=== PATIENT | male | born 1965 | race Caucasian/White ===

== ENCOUNTER 2021-03-01 10:43 | Inpatient (IN) ==
[2021-03-01 14:02] LABS: Albumin 2.6 G/DL (3.4-5.0); Bilirubin,Total 0.66 MG/DL (0.20-1.00); Calcium 7.8 MG/DL (8.5-10.1); Total Protein 5.6 G/DL (6.4-8.2)
[2021-03-01 14:03] LABS: Osmolality,Calculated 285.3 MOS/KG (273-304); Potassium 4.4 MMOL/L (3.5-5.1)
[2021-03-01] MEDS ORDERED: ONDANSETRON 4 MG/2 ML VIAL IV PRN (14:23)
[2021-03-01] MEDS ORDERED: GLUCAGON 1 MG VIAL IM PRN (14:23)
[2021-03-01] MEDS ORDERED: SODIUM CHLORIDE 0.9% 1,000 ML IV PRN (14:27)
[2021-03-01] MEDS ORDERED: DEXTROSE 50% 25 GM/50 ML SYRINGE IV PRN (14:38)
[2021-03-01 14:54] LABS: INR 1.2; PT Patient Result 13.6 SECS (10.5-12.0); Partial Thromboplastin Time 29.4 SECS (23.8-32.1)
[2021-03-01 15:01] LABS: Basophils % 0.6 % (0.0-0.8); Eosinophils # 0.2 10*3/uL (0.0-0.87); Eosinophils % 2.5 % (0.00-10.9); Hematocrit 24.6 VOL% (42.0-52.0); Hemoglobin 7.6 GM/DL (14.0-18.0); Immature Granulocytes % 0.6 %; Immature Granulocytes Absolute 0.04 #; Lymphocytes # 0.5 10*3/uL (1.4-4.0); Lymphocytes % 7.8 % (21.2-54.2); Mean Corpuscular HGB Conc 30.9 GM/DL (32-36); Mean Platelet Volume 11.6 FL (9.6-12.0); Monocytes % 8.8 % (1.7-12.7); Neutrophils % 79.7 % (38.7-73.9); Platelet Count 89 T/CUMM (130-400); Red Blood Count 2.59 MC/CUMM (3.8-5.5); Red Cell Distribution Width 15.2 % (9.3-17.3); White Blood Count 6.8 T/CUMM (4-12)
[2021-03-01] MEDS ORDERED: ALBUTEROL/IPRATROPIUM 3 ML NEB RESP TX PRN (15:28)
[2021-03-01] MEDS: PANTOPRAZOLE INJ 200 MG in SODIUM CHLORIDE 0.9% 250 ML IV SCH (16:00)
[2021-03-01] MEDS: metroNIDAZOLE INJ 500 MG/100 ML PREMIX IV SCH (16:00)
[2021-03-01] MEDS: LEVOFLOXACIN INJ 500 MG/100 ML PREMIX IV SCH (18:35)
[2021-03-01 19:12] LABS: Hypochromasia Slight
[2021-03-01 19:13] LABS: Platelet Estimate Adequate
[2021-03-02] MEDS: LACTULOSE 20 GM/30 ML UDCUP PO SCH ×3 (01:22→23:09)
[2021-03-02] MEDS: RIFAXIMIN 550 MG TABLET PO SCH ×3 (01:22→22:38)
[2021-03-02] MEDS: metroNIDAZOLE INJ 500 MG/100 ML PREMIX IV SCH ×4 (04:32→22:34)
[2021-03-02] MEDS ORDERED: FUROSEMIDE 20 MG TABLET PO SCH (09:00)
[2021-03-02] MEDS ORDERED: ALBUMIN 25% 50 GM/200 ML VIAL IV ONE (09:09)
[2021-03-02 09:48] LABS: Basophils % 0.6 % (0.0-0.8); Eosinophils # 0.2 10*3/uL (0.0-0.87); Eosinophils % 3.8 % (0.00-10.9); Hematocrit 24.3 VOL% (42.0-52.0); Hemoglobin 7.6 GM/DL (14.0-18.0); Immature Granulocytes % 0.6 %; Immature Granulocytes Absolute 0.03 #; Lymphocytes # 0.7 10*3/uL (1.4-4.0); Lymphocytes % 14.7 % (21.2-54.2); Mean Corpuscular HGB Conc 31.3 GM/DL (32-36); Mean Corpuscular Volume 93.5 FL (87-102); Mean Platelet Volume 10.1 FL (9.6-12.0); Monocytes % 11.5 % (1.7-12.7); Neutrophils % 68.8 % (38.7-73.9); Platelet Count 71 T/CUMM (130-400); Red Cell Distribution Width 15.7 % (9.3-17.3)
[2021-03-02] MEDS: SPIRONOLACTONE 50 MG TABLET PO SCH (10:05)
[2021-03-02 10:10] LABS: Albumin 2.2 G/DL (3.4-5.0); Bilirubin,Total 0.9 MG/DL (0.20-1.00); Calcium 7.6 MG/DL (8.5-10.1); Osmolality,Calculated 289.8 MOS/KG (273-304); Potassium 4.4 MMOL/L (3.5-5.1); Risk Ratio 2.27; Total Protein 5.2 G/DL (6.4-8.2); VLDL Cholesterol 10.2 MG/DL
[2021-03-02 10:15] LABS: Hypochromasia 2+; Microcytosis 1+; Platelet Estimate Decreased
[2021-03-02] MEDS: LEVOFLOXACIN INJ 500 MG/100 ML PREMIX IV SCH (16:39)
[2021-03-02] MEDS: FUROSEMIDE 40 MG TABLET PO SCH (16:39)
[2021-03-02] MEDS: PANTOPRAZOLE INJ 200 MG in SODIUM CHLORIDE 0.9% 250 ML IV SCH (16:39)
[2021-03-02] MEDS: MORPHINE 2 MG/1 ML SYRINGE IV PRN ×2 (17:14→22:37)
[2021-03-02 17:16] LABS: Hematocrit 23.9 VOL% (42.0-52.0); Hemoglobin 7.5 GM/DL (14.0-18.0)
[2021-03-02 23:42] LABS: Hematocrit 24.8 VOL% (42.0-52.0); Hemoglobin 7.8 GM/DL (14.0-18.0)
[2021-03-03 06:23] LABS: Hematocrit 24.1 VOL% (42.0-52.0); Hemoglobin 7.5 GM/DL (14.0-18.0)
[2021-03-03 06:25] LABS: Basophils % 0.3 % (0.0-0.8); Eosinophils # 0.3 10*3/uL (0.0-0.87); Eosinophils % 8.3 % (0.00-10.9); Hematocrit 23.4 VOL% (42.0-52.0); Hemoglobin 7.6 GM/DL (14.0-18.0); Immature Granulocytes % 0.3 %; Immature Granulocytes Absolute 0.01 #; Lymphocytes # 0.6 10*3/uL (1.4-4.0); Lymphocytes % 18.5 % (21.2-54.2); Mean Corpuscular HGB Conc 32.5 GM/DL (32-36); Mean Corpuscular Volume 91.8 FL (87-102); Monocytes % 15.8 % (1.7-12.7); Neutrophils % 56.8 % (38.7-73.9); Platelet Count 54 T/CUMM (130-400); Red Blood Count 2.55 MC/CUMM (3.8-5.5); Red Cell Distribution Width 15.3 % (9.3-17.3)
[2021-03-03 06:39] LABS: Calcium 7.4 MG/DL (8.5-10.1); Osmolality,Calculated 274.7 MOS/KG (273-304); Potassium 3.5 MMOL/L (3.5-5.1)
[2021-03-03 06:40] LABS: Eosinophils 7 % (0-10); Lymphocytes 21 % (20-55); Segmented Neutrophils 56 % (50-85); Total Cells Counted 100
[2021-03-03 06:41] LABS: Hypochromasia 1+; Microcytosis 1+; Ovalocytes Slight; Platelet Estimate Decreased
[2021-03-03] MEDS: metroNIDAZOLE INJ 500 MG/100 ML PREMIX IV SCH ×3 (06:41→22:00)
[2021-03-03 06:45] LABS: Calcium 7.4 MG/DL (8.5-10.1); Osmolality,Calculated 278.4 MOS/KG (273-304); Potassium 3.5 MMOL/L (3.5-5.1)
[2021-03-03] MEDS: LACTATED RINGERS 1,000 ML IV SCH (08:00)
[2021-03-03] MEDS ORDERED: GLYCOPYRROLATE 0.4 MG/2 ML VIAL ONE (08:27)
[2021-03-03] MEDS ORDERED: propofoL 200 MG/20 ML VIAL IV ONE (08:27)
[2021-03-03] MEDS ORDERED: LIDOCAINE 2% 5 ML VIAL ONE (08:27)
[2021-03-03] MEDS ORDERED: KETAMINE 500 MG/10 ML VIAL ONE (08:40)
[2021-03-03] MEDS ORDERED: SODIUM CHLORIDE 0.9% 1,000 ML IV PRN (09:00)
[2021-03-03] MEDS ORDERED: MEPERIDINE 50 MG/1 ML VIAL IV ONE (09:04)
[2021-03-03] MEDS ORDERED: PROMETHAZINE INJ 25 MG in SODIUM CHLORIDE 0.9% 50 ML IV ONE (09:05)
[2021-03-03] MEDS ORDERED: MEPERIDINE 50 MG/1 ML VIAL ONE (09:09)
[2021-03-03] MEDS ORDERED: PROMETHAZINE 25 MG/1 ML VIAL ONE (09:10)
[2021-03-03] MEDS ORDERED: SODIUM CHLORIDE 0.9% 100 ML IV ONE (09:15)
[2021-03-03] MEDS: LACTULOSE 20 GM/30 ML UDCUP PO SCH ×2 (10:22→23:11)
[2021-03-03] MEDS: SPIRONOLACTONE 50 MG TABLET PO SCH (10:23)
[2021-03-03] MEDS: FUROSEMIDE 40 MG TABLET PO SCH ×2 (10:23→15:43)
[2021-03-03] MEDS: RIFAXIMIN 550 MG TABLET PO SCH ×2 (10:23→21:27)
[2021-03-03] MEDS ORDERED: PROMETHAZINE INJ 25 MG in SODIUM CHLORIDE 0.9% 50 ML IV PRN (12:28)
[2021-03-03] MEDS: PROPRANOLOL 10 MG TABLET PO SCH ×2 (15:42→21:27)
[2021-03-03] MEDS: LEVOFLOXACIN INJ 500 MG/100 ML PREMIX IV SCH (15:42)
[2021-03-03] MEDS: MEPERIDINE 50 MG/1 ML VIAL IV PRN ×2 (15:53→20:18)
[2021-03-03 18:39] LABS: Hematocrit 31.3 VOL% (42.0-52.0)
[2021-03-04] MEDS: MEPERIDINE 50 MG/1 ML VIAL IV PRN ×2 (05:01→11:53)
[2021-03-04 05:14] LABS: Basophils % 0.4 % (0.0-0.8); Eosinophils # 0.4 10*3/uL (0.0-0.87); Eosinophils % 7.9 % (0.00-10.9); Hematocrit 32.5 VOL% (42.0-52.0); Hemoglobin 10.4 GM/DL (14.0-18.0); Immature Granulocytes % 0.4 %; Immature Granulocytes Absolute 0.02 #; Lymphocytes # 0.6 10*3/uL (1.4-4.0); Lymphocytes % 12.4 % (21.2-54.2); Mean Corpuscular Volume 90.3 FL (87-102); Mean Platelet Volume 11.2 FL (9.6-12.0); Monocytes % 14.1 % (1.7-12.7); Neutrophils % 64.8 % (38.7-73.9); Platelet Count 82 T/CUMM (130-400); Red Cell Distribution Width 16.1 % (9.3-17.3); White Blood Count 4.7 T/CUMM (4-12)
[2021-03-04 05:30] LABS: Hypochromasia 1+
[2021-03-04 05:31] LABS: Anisocytosis 1+; Microcytosis 1+; Ovalocytes Few; Platelet Estimate Decreased; Polychromasia Slight
[2021-03-04 05:33] LABS: Calcium 8.2 MG/DL (8.5-10.1); Osmolality,Calculated 274.7 MOS/KG (273-304); Potassium 3.9 MMOL/L (3.5-5.1)
[2021-03-04] MEDS: metroNIDAZOLE INJ 500 MG/100 ML PREMIX IV SCH ×2 (06:00→15:56)
[2021-03-04] MEDS: LACTATED RINGERS 1,000 ML IV SCH (07:56)
[2021-03-04] MEDS ORDERED: PANTOPRAZOLE 40 MG VIAL IV SCH (09:00)
[2021-03-04] MEDS ORDERED: LACTULOSE 20 GM/30 ML UDCUP PO SCH (09:00)
[2021-03-04] MEDS: SPIRONOLACTONE 50 MG TABLET PO SCH (09:04)
[2021-03-04] MEDS: PROPRANOLOL 10 MG TABLET PO SCH ×2 (09:04→15:45)
[2021-03-04] MEDS: FUROSEMIDE 40 MG TABLET PO SCH ×2 (09:04→15:45)
[2021-03-04] MEDS: RIFAXIMIN 550 MG TABLET PO SCH (09:04)
[2021-03-04] MEDS: LEVOFLOXACIN INJ 500 MG/100 ML PREMIX IV SCH (15:57)
[2021-03-04 16:03] VITALS: BP 111/71
== END 2021-03-04 17:10 | DRG 432 ==
LOC: N.ED 10:43 → N.EDINP 14:22 → N.3W 22:05
PROVIDERS: ADMIT Internal Medicine; ATTEND Internal Medicine
PROC: EGDWEBL (ICD-10-PCS; 2021-03-03 08:20)

== ENCOUNTER 2021-03-12 16:57 | Inpatient (IN) ==
[2021-03-12 17:43] LABS: Basophils % 0.2 % (0.0-0.8); Eosinophils % 0.1 % (0.00-10.9); Hematocrit 31.5 VOL% (42.0-52.0); Hemoglobin 10.1 GM/DL (14.0-18.0); Immature Granulocytes % 0.7 %; Immature Granulocytes Absolute 0.09 #; Lymphocytes # 0.2 10*3/uL (1.4-4.0); Lymphocytes % 1.6 % (21.2-54.2); Mean Corpuscular HGB Conc 32.1 GM/DL (32-36); Mean Corpuscular Volume 90.8 FL (87-102); Neutrophils % 92.4 % (38.7-73.9); Platelet Count 64 T/CUMM (130-400); Red Blood Count 3.47 MC/CUMM (3.8-5.5); Red Cell Distribution Width 15.8 % (9.3-17.3)
[2021-03-12 17:54] LABS: Albumin 2.9 G/DL (3.4-5.0); Bilirubin,Total 1.5 MG/DL (0.20-1.00); Calcium 8.2 MG/DL (8.5-10.1); Osmolality,Calculated 279.4 MOS/KG (273-304); Potassium 3.9 MMOL/L (3.5-5.1); Total Protein 6.7 G/DL (6.4-8.2)
[2021-03-12] MEDS ORDERED: ONDANSETRON 4 MG/2 ML VIAL IV ONE (18:45)
[2021-03-12] MEDS ORDERED: HYDROmorphone 2 MG/1 ML VIAL IV STA (18:45)
[2021-03-12] MEDS ORDERED: SODIUM CHLORIDE 0.9% 500 ML IV STA (18:45)
[2021-03-12 19:09] LABS: Lactic Acid 1.9 MMOL/L (0.4-2.0)
[2021-03-12 20:30] LABS: INR 1.2; PT Patient Result 12.8 SECS (10.5-12.0); Partial Thromboplastin Time 30.8 SECS (23.8-32.1)
[2021-03-12] MEDS ORDERED: GLUCAGON 1 MG VIAL IM PRN (21:08)
[2021-03-12] MEDS ORDERED: DEXTROSE 50% 25 GM/50 ML SYRINGE IV PRN (21:08)
[2021-03-12 21:13] LABS: Platelet Estimate Decreased
[2021-03-12] MEDS ORDERED: hydrALAZINE 20 MG/1 ML VIAL IV PRN (21:34)
[2021-03-12] MEDS ORDERED: ONDANSETRON 4 MG/2 ML VIAL IV PRN (21:34)
[2021-03-12] MEDS ORDERED: CIPROFLOXACIN INJ 400 MG/200 ML PREMIX IV SCH (22:00)
[2021-03-12] MEDS: PANTOPRAZOLE 40 MG VIAL IV SCH (23:28)
[2021-03-12 23:53] LABS: Bilirubin,Urine Negative (Negative); Blood, Urine Negative (Negative); Glucose,Urine (UA) Negative (Negative); Ketones,Urine Negative (Negative); Mucus,Urine Few /LPF (Occasional); Nitrite,Urine Negative (Negative); Protein,Urine Negative; RBC,Urine 4 /HPF (0-4); Squamous Epithelial Cell,Urine Occasional /HPF (0-10); Urine Appearance CLEAR (Clear); Urine Color Amber (Yellow); Urine Specific Gravity 1.025 (1.001-1.035); Urine Urobilinogen < 2.0 EU/DL (<2.0)
[2021-03-13] MEDS: CEFEPIME 1,000 MG in SODIUM CHLORIDE 0.9% 100 ML IV SCH ×4 (01:53→21:21)
[2021-03-13] MEDS: HYDROmorphone 2 MG/1 ML VIAL IV PRN ×4 (01:54→22:06)
[2021-03-13 01:55] LABS: Albumin 2.7 G/DL (3.4-5.0); Bilirubin,Total 1.2 MG/DL (0.20-1.00); Calcium 7.9 MG/DL (8.5-10.1); Osmolality,Calculated 271.1 MOS/KG (273-304); Potassium 4.3 MMOL/L (3.5-5.1); Total Protein 6.3 G/DL (6.4-8.2)
[2021-03-13 02:06] LABS: Basophils % 0.2 % (0.0-0.8); Eosinophils % 0.3 % (0.00-10.9); Hematocrit 30.8 VOL% (42.0-52.0); Hemoglobin 9.5 GM/DL (14.0-18.0); Immature Granulocytes % 0.8 %; Immature Granulocytes Absolute 0.09 #; Lymphocytes # 0.5 10*3/uL (1.4-4.0); Lymphocytes % 4.5 % (21.2-54.2); Mean Corpuscular HGB Conc 30.8 GM/DL (32-36); Mean Corpuscular Volume 93.1 FL (87-102); Mean Platelet Volume 11.3 FL (9.6-12.0); Neutrophils % 86.2 % (38.7-73.9); Platelet Count 55 T/CUMM (130-400); Red Blood Count 3.31 MC/CUMM (3.8-5.5); Red Cell Distribution Width 15.9 % (9.3-17.3); White Blood Count 11.5 T/CUMM (4-12)
[2021-03-13] MEDS: VANCOMYCIN INJ 1,000 MG in SODIUM CHLORIDE 0.9% 250 ML IV SCH ×2 (02:39→16:28)
[2021-03-13 02:44] LABS: Band Neutrophils 3 % (0-10); Eosinophils 1 % (0-10); Hypochromasia Slight; Lymphocytes 1 % (20-55); Platelet Estimate Decreased; Segmented Neutrophils 91 % (50-85); Total Cells Counted 100
[2021-03-13] MEDS: ALBUTEROL/IPRATROPIUM 3 ML NEB RESP TX SCH ×4 (02:53→19:37)
[2021-03-13 10:30] LABS: Neutrophils,Peritoneal Fluid 85 %
[2021-03-13 10:32] LABS: RBC,Peritoneal Fluid 194 T/CUMM
[2021-03-13] MEDS: PANTOPRAZOLE 40 MG VIAL IV SCH ×2 (11:39→21:21)
[2021-03-13] MEDS ORDERED: ALBUMIN 5% 0 GM/0 ML VIAL IV ONE (12:50)
[2021-03-13] MEDS ORDERED: ETOMIDATE 20 MG/10 ML VIAL IV ONE (12:52)
[2021-03-13] MEDS ORDERED: LIDOCAINE 2% 5 ML VIAL ONE (12:52)
[2021-03-13] MEDS ORDERED: propofoL 200 MG/20 ML VIAL IV ONE (12:52)
[2021-03-13 13:24] LABS: Hematocrit 29.1 VOL% (42.0-52.0); Hemoglobin 9.2 GM/DL (14.0-18.0)
[2021-03-13] MEDS: HYDROCORTISONE 25 MG SUPP RECTAL SCH ×2 (15:56→22:12)
[2021-03-13] MEDS: PROPRANOLOL 20 MG TABLET PO SCH ×2 (16:28→21:21)
[2021-03-14] MEDS: ALBUTEROL/IPRATROPIUM 3 ML NEB RESP TX SCH ×4 (01:12→13:45)
[2021-03-14] MEDS: CEFEPIME 1,000 MG in SODIUM CHLORIDE 0.9% 100 ML IV SCH ×3 (02:38→16:17)
[2021-03-14] MEDS: HYDROmorphone 2 MG/1 ML VIAL IV PRN (03:22)
[2021-03-14] MEDS: VANCOMYCIN INJ 1,000 MG in SODIUM CHLORIDE 0.9% 250 ML IV SCH ×2 (04:42→16:17)
[2021-03-14] MEDS ORDERED: SPIRONOLACTONE 50 MG TABLET PO SCH (09:00)
[2021-03-14] MEDS ORDERED: RIFAXIMIN 550 MG TABLET PO SCH (09:00)
[2021-03-14 09:02] LABS: Basophils % 0.3 % (0.0-0.8); Eosinophils # 0.4 10*3/uL (0.0-0.87); Eosinophils % 6.9 % (0.00-10.9); Hematocrit 30.4 VOL% (42.0-52.0); Hemoglobin 9.6 GM/DL (14.0-18.0); Immature Granulocytes % 0.8 %; Immature Granulocytes Absolute 0.05 #; Lymphocytes # 0.6 10*3/uL (1.4-4.0); Lymphocytes % 10.2 % (21.2-54.2); Mean Corpuscular HGB Conc 31.6 GM/DL (32-36); Mean Corpuscular Volume 92.4 FL (87-102); Mean Platelet Volume 10.5 FL (9.6-12.0); Monocytes % 13.6 % (1.7-12.7); Neutrophils % 68.2 % (38.7-73.9); Platelet Count 78 T/CUMM (130-400); Red Blood Count 3.29 MC/CUMM (3.8-5.5); Red Cell Distribution Width 15.9 % (9.3-17.3); White Blood Count 5.9 T/CUMM (4-12)
[2021-03-14 09:27] LABS: Calcium 7.5 MG/DL (8.5-10.1)
[2021-03-14 09:34] LABS: Anisocytosis 2+; Band Neutrophils 5 % (0-10); Eosinophils 8 % (0-10); Lymphocytes 10 % (20-55); Macrocytosis Slight; Platelet Estimate Decreased; Segmented Neutrophils 66 % (50-85); Smudge Cells Few; Total Cells Counted 100
[2021-03-14] MEDS: PROPRANOLOL 20 MG TABLET PO SCH ×2 (10:32→16:17)
[2021-03-14] MEDS: PANTOPRAZOLE 40 MG VIAL IV SCH (10:32)
[2021-03-14] MEDS: HYDROCORTISONE 25 MG SUPP RECTAL SCH (10:32)
[2021-03-14 11:54] VITALS: BP 103/72
[2021-03-15] MEDS ORDERED: LACTULOSE 20 GM/30 ML UDCUP PO SCH (09:00)
== END 2021-03-14 16:30 | DRG 432 ==
LOC: EDUNIT# → EDBD → N.ED 16:57 → SUATTDRO 21:08 → N.3W 21:08
PROVIDERS: ADMIT Internal Medicine; ATTEND Phlebology